=== PATIENT | female | born 1935 | race Caucasian/White ===

== ENCOUNTER 2020-06-11 15:16 | Emergency (ER) | payer OTHER ==
[2020-06-11 19:09] LABS: HEMOGLOBIN 13.3 gm/dl (12.3-15.3); RED BLOOD COUNT 4.06 M/UL (4.00-5.10); WHITE BLOOD COUNT 7.8 K/UL (4.5-11.0)
[2020-06-11] MEDS ORDERED: CEPHALEXIN500 M1 PO (21:40)
[2020-06-11] MEDS ORDERED: K-DUR TAB 20 M20 MEQ PO (21:40)
[2020-06-11] MEDS ORDERED: ONDANSETRON ODT4 MG SL (21:40)
== END 2020-06-11 22:30 | disposition home or self-care (01) ==
LOC: ER1 15:16
PROVIDERS: Physician Assistant
DX: B02.9 Zoster without complications (principal); I10 Essential (primary) hypertension; E86.0 Dehydration; E87.6 Hypokalemia; E87.1 Hypo-osmolality and hyponatremia; I25.10 Atherosclerotic heart disease of native coronary artery without angina pectoris; Z91.041 Radiographic dye allergy status; Z91.013 Allergy to seafood; Z79.899 Other long term (current) drug therapy; N39.0 Urinary tract infection, site not specified; N28.9 Disorder of kidney and ureter, unspecified
CPT/HCPCS: 80053; 81001; 83735; 85025; 87077; 87086; 87186; 96365; 99283; J3480; J7030